=== PATIENT | male | born 1970 | race Caucasian/White ===

== ENCOUNTER → 2018-10-23 | Outpatient (CLI) | payer OTHER ==
[~2018-10-23] MED LIST: ALPR1TAB2 PO; ALPR1TAB5; ALPR1TAB7 PO; AMLO5TAB2 PO; ASPIRIN 325 MG PO; CALC-694 PO; ENAL10TA PO; ENAL20TA PO; HYDR-2890 PO; HYDR-32 PO; LORA-405 PO; MULT-608 PO; OMEG1CAP51 PO; SULF1TAB35 PO; TRAZ-144 PO; ZOLP10TA5 PO
--- NOTE | 2018-10-23 13:26 | Diagnostic Imaging Report ---
INDICATION: Left knee pain. TIME OF EXAMINATION: 10:31 AM. TECHNIQUE: AP and lateral views of the left knee were obtained. FINDINGS: The alignment is normal. The joint spaces are fairly well-maintained. The articular surfaces are smooth. There is some patellofemoral degenerative change noted. There may be some mild chondrocalcinosis of the medial and lateral compartments. No fracture, dislocation, or effusion is seen. IMPRESSION: Degenerative changes. No acute bony abnormality is detected. Dictated by: Dictated on workstation # [id number]
--- NOTE | 2018-10-23 13:29 | Diagnostic Imaging Report ---
INDICATION: Back pain. TIME OF EXAM: 10:30 a.m. AP and lateral views of the lumbar spine were obtained. Curvature and alignment is normal. The vertebral body heights are maintained. No acute compression fracture is seen. There is significant degenerative disc disease at L2-L3 level with significant disc space narrowing as well as endplate sclerosis and marginal osteophyte formation. Degenerative changes to a lesser degree are noted at other levels throughout the lumbar spine with variable disc space narrowing and marginal spurring. IMPRESSION: Lumbar spondylosis, most severe at L2-L3 level. No acute bony abnormality is detected. Dictated by: Dictated on workstation # [id number]
== END ==
LOC: RAD 09:50
PROVIDERS: ATTEND Surgery
DX: Z02.71 Encounter for disability determination (principal); M17.12 Unilateral primary osteoarthritis, left knee; M47.816 Spondylosis without myelopathy or radiculopathy, lumbar region
CPT/HCPCS: 72100; 73560